=== PATIENT | female | born 1930 | race Caucasian/White ===

== ENCOUNTER → 2017-06-19 | Outpatient (CLI) | payer MEDICARE, OTHER ==
--- NOTE | 2017-06-19 15:04 | PCVCIMAG ---
APPROVED REPORT Indications Stenosis Risk Factors Hypertension: Doppler Spectral Velocity Analysis PSV / EDVPSV / EDV ECA (R) 74 / 14 cm/sECA (L) 307 / 11 cm/s dICA (R) 76 / 25 cm/sdICA (L) 75 / 18 cm/s Precious (R) 87 / 29 cm/smICA (L) 116 / 16 cm/s pICA (R) 116 / 40 cm/spICA (L) 211 / 24 cm/s Bulb (R) 120 / 40 cm/sBulb (L) 310 / 23 cm/s dCCA (R) 74 / 26 cm/sdCCA (L) 106 / 16 cm/s mCCA (R) 60 / 20 cm/smCCA (L) 106 / 39 cm/s Vert (R) 200 / 0 cm/sVert (L) 98 / 18 cm/s ICA/CCA 1.57ICA/CCA 1.99 Basic Measurements Blood Pressure: Pulses: Right Left RightLeft Brachial(Sitting) 88/44ubCk462/50mmHgTemporal Real Time B-Mode Imaging Vert. (R)AntegradeVert. (L)Antegrade Findings The right carotid bulb has moderate calcified plaque. The right proximal internal carotid artery shows 40-50% stenosis. The right common carotid artery shows no significant stenosis. The right external carotid artery shows <50% stenosis. The left carotid bulb has severe calcified plaque. The left proximal internal carotid artery shows 70-90% stenosis. The left common carotid artery shows no significant stenosis. The left external carotid artery shows >90% stenosis. Conclusion 1. Right internal carotid artery stenosis (40-50%) 2. Left internal carotid artery stenosis (70-90%) 3. Biphasic right vertebral flow. Antegrade left vertebral flow
== END | disposition home or self-care (01) ==
LOC: PCVCIMAG 13:42
PROVIDERS: ATTEND Internal Medicine
DX: I65.23 Occlusion and stenosis of bilateral carotid arteries (principal); I10 Essential (primary) hypertension; E78.00 Pure hypercholesterolemia, unspecified; Z90.710 Acquired absence of both cervix and uterus; Z79.82 Long term (current) use of aspirin; Z79.899 Other long term (current) drug therapy
CPT/HCPCS: 80061; 93005; 93880; G0463

== ENCOUNTER → 2017-12-18 | Outpatient (CLI) | payer MEDICARE, OTHER | END | disposition home or self-care (01) | LOC: PCVCIMAG 12:56 | DX: I65.23 Occlusion and stenosis of bilateral carotid arteries (principal); E78.5 Hyperlipidemia, unspecified; I10 Essential (primary) hypertension; Z79.899 Other long term (current) drug therapy; Z79.82 Long term (current) use of aspirin | CPT/HCPCS: 80061; 93005; 93880; G0463 ==

== ENCOUNTER → 2018-12-10 | Outpatient (CLI) | payer MEDICARE, OTHER ==
--- NOTE | 2018-12-10 15:31 | PCVCIMAG ---
APPROVED REPORT Indications Stenosis Risk Factors Hypertension: Doppler Spectral Velocity Analysis PSV / EDVPSV / EDV ECA (R) 30 / 8 cm/sECA (L) 370 / 28 cm/s dICA (R) 54 / 26 cm/sdICA (L) 96 / 22 cm/s Precious (R) 60 / 27 cm/smICA (L) 115 / 15 cm/s pICA (R) 78 / 34 cm/spICA (L) 170 / 31 cm/s Bulb (R) 57 / 28 cm/sBulb (L) 130 / 16 cm/s dCCA (R) 45 / 23 cm/sdCCA (L) 95 / 16 cm/s mCCA (R) 39 / 17 cm/smCCA (L) 97 / 17 cm/s pCCA (R) 164 / 27 cm/spCCA (L) Vert (R) 57 / 10 cm/sVert (L) 96 / 17 cm/s ICA/CCA 1.73ICA/CCA 1.79 Basic Measurements Blood Pressure: Pulses: Right Left RightLeft Brachial(Sitting) 116/50taSs353/58mmHgTemporal Real Time B-Mode Imaging Vert. (L)Antegrade Findings The right carotid bulb has moderately severe calcified plaque. The right proximal internal carotid artery shows 40-50% stenosis. The right common carotid artery shows 40-50% stenosis. The right external carotid artery shows no significant stenosis. The left carotid bulb has severe calcified plaque. The left proximal internal carotid artery shows 60-70% stenosis. The left common carotid artery shows no significant stenosis. The left external carotid artery shows >90% stenosis. Conclusion 1. Right internal and common carotid artery stenoses (40-50%) 2. Left internal carotid artery stenosis (60-70%) 3. Antegrade left vertebral flow, retrograde right vertebral flow Similar to November 2017
== END | disposition home or self-care (01) ==
LOC: PCVCIMAG 13:14
PROVIDERS: ATTEND Internal Medicine
DX: I65.23 Occlusion and stenosis of bilateral carotid arteries (principal); I10 Essential (primary) hypertension; E78.5 Hyperlipidemia, unspecified; E78.00 Pure hypercholesterolemia, unspecified; Z79.82 Long term (current) use of aspirin
CPT/HCPCS: 36415; 80061; 93005; 93880; G0463